=== PATIENT | female | born 1985 | race Caucasian/White ===

== ENCOUNTER 2016-09-13 17:18 | Emergency (ER) | payer MEDICAID ==
--- NOTE | 2016-09-13 17:55 | ER Document Report ---
ED Medical Screen (RME) - General Stated Complaint: MIGRAINE Mode of Arrival: Ambulatory Information source: Patient Notes: Patient complains of headache pain for the past 3 days. Patient states pain has gradually been getting worse. Patient states this is typical migraines that she's had before but she ran out of her migraine medications. hx: Migraines I have greeted and performed a rapid initial assessment of this patient. A comprehensive ED assessment and evaluation of the patient, analysis of test results and completion of the medical decision making process will be conducted by additional ED providers. TRAVEL OUTSIDE OF THE [place] IN LAST 30 DAYS: No - Related Data Allergies/Adverse Reactions: No Known Allergies Allergy (Verified 08/30/15 23:26) Past Medical History Neurological Medical History: Reports: Hx Migraine Past Surgical History: Reports: Hx Myringotomy - Immunizations Immunizations up to date: Yes Hx Diphtheria, Pertussis, Tetanus Vaccination: Yes Physical Exam - Vital signs Vitals: Temp Pulse Resp BP Pulse Ox 97.9 F 117 H 19 122/82 100 09/13/16 17:21 09/13/16 17:21 09/13/16 17:21 09/13/16 17:21 09/13/16 17:21 - Neurological Neuro grossly intact: Yes Cognition: Normal [place] Coma Scale Eye Opening: Spontaneous [place] Coma Scale Verbal: Oriented Randy Coma Scale Motor: Obeys Commands Randy Coma Scale Total: 15 Course - Vital Signs Vital signs: Temp Pulse Resp BP Pulse Ox 97.9 F 117 H 19 122/82 100 09/13/16 17:21 09/13/16 17:21 09/13/16 17:21 09/13/16 17:21 09/13/16 17:21
[2016-09-13] MEDS ORDERED: OXYCODONE-ACETAMINOPHEN 5-325 MG TABLET PO ONE (18:48)
--- NOTE | 2016-09-13 19:28 | ER Document Report ---
ED Headache - General Time seen by provider: 18:35 Mode of Arrival: Ambulatory Information source: Patient TRAVEL OUTSIDE OF THE [place] IN LAST 30 DAYS: No - HPI Patient complains to provider of: "Migraine" Patient reports: Frequent migraines Onset: Other - see HPI notes - General Stated Complaint: MIGRAINE Notes: Patient is a 31 year old female presenting to the emergency department with complaints of a migraine. Patient states she has had a migraine for the past 3 days. Patient states that she has tried all of her at home medications with no relief. Patient has also tried a muscle relaxer which also had no relief. Patient states that she has had an increased amount of stress lately and she has not been sleeping well because she lost her best friend last week. Patient has no known allergies. (MIA HARDY) - Related Data Allergies/Adverse Reactions: No Known Allergies Allergy (Verified 09/13/16 17:54) Past Medical History - General Information source: Patient - Social History Smoking Status: Never Smoker Cigarette use (# per day): No Chew tobacco use (# tins/day): No Frequency of alcohol use: None Drug Abuse: None Family History: Reviewed & Not Pertinent, Arthritis, CAD, DM, Hyperlipidemia, Hypertension, Malignancy, Thyroid Disfunction Patient has suicidal ideation: No Patient has homicidal ideation: No Neurological Medical History: Reports: Hx Migraine Past Surgical History: Reports: Hx Myringotomy - Immunizations Immunizations up to date: Yes Hx Diphtheria, Pertussis, Tetanus Vaccination: Yes Review of Systems - Review of Systems Constitutional: No symptoms reported EENT: No symptoms reported Cardiovascular: No symptoms reported Respiratory: No symptoms reported Gastrointestinal: No symptoms reported Genitourinary: No symptoms reported Female Genitourinary: No symptoms reported Musculoskeletal: No symptoms reported Skin: No symptoms reported Hematologic/Lymphatic: No symptoms reported Neurological/Psychological: See HPI, Headaches -: Yes All other systems reviewed and negative Physical Exam - Vital signs Interpretation: Normal - General General appearance: Alert, Other - appears uncomfortable In distress: Mild - HEENT Head: Normocephalic, Atraumatic Eyes: Normal Pupils: PERRL Mucous membranes: Moist - Respiratory Respiratory status: No respiratory distress Chest status: Nontender Breath sounds: Normal Chest palpation: Normal - Cardiovascular Rhythm: Regular Heart sounds: Normal auscultation Murmur: No - Abdominal Inspection: Normal Distension: No distension Bowel sounds: Normal Tenderness: Nontender Organomegaly: No organomegaly - Back Back: Normal, Nontender - Extremities General upper extremity: Normal inspection, Normal ROM, Normal strength General lower extremity: Normal inspection, Normal ROM, Normal strength - Neurological Neuro grossly intact: Yes Cognition: Normal Orientation: AAOx4 Randy Coma Scale Eye Opening: Spontaneous [place] Coma Scale Verbal: Oriented [place] Coma Scale Motor: Obeys Commands Randy Coma Scale Total: 15 Speech: Normal - Psychological Associated symptoms: Normal affect, Normal mood - Skin Skin Temperature: Warm Skin Moisture: Dry Course - Re-evaluation Re-evalutation: 09/13/16 Patient presents with her typical migraine pattern. Patient has taken her prescribed medications at home for migraines and they have not worked. Patient states that Percocet works when she has severe pain. States that she's not been able to sleep because she is been under a lot of stress. Patient has been medicated with Percocet with good results. Patient is feeling better and would like to go home. Stable for discharge. Return immediately if any worsening or concerning symptoms. (GAYLE RED) - Vital Signs Vital signs: Temp Pulse Resp BP Pulse Ox 97.9 F 117 H 19 122/82 100 09/13/16 17:21 09/13/16 17:21 09/13/16 17:21 09/13/16 17:21 09/13/16 17:21 (MIA HARDY) (GAYLE RED) Discharge - Discharge Clinical Impression: Headache Qualifiers: Headache type: unspecified Headache chronicity pattern: acute headache Intractability: not intractable Qualified Code(s): R51 - Headache Condition: Stable Disposition: HOME, SELF-CARE Instructions: Headache ([facility]), Oral Narcotic Medication ([facility]) Prescriptions: Oxycodone HCl/Acetaminophen [Percocet 5-325 mg Tablet] 1 tab PO Q4H PRN #15 tablet PRN Reason: Forms: Return to School Referrals: ARCELIA JAVED DO [Primary Care Provider] - Follow up as needed Scribe Attestation: 09/13/16 21:12 I personally performed the services described in the documentation, reviewed and edited the documentation which was dictated to the scribe in my presence, and it accurately records my words and actions. (GAYLE RED) Scribe Documentation - Scribe Written by Scribe:: Mia Hardy 09/13/16 19:57 acting as scribe for :: Radha
[2016-09-13] MEDS ORDERED: HYDROCODONE/ACETAMINOPHEN 5-325 MG 6 TAB/DSPK PO PRN (19:37)
[2016-09-13 21:13] VITALS: BP 121/75
== END 2016-09-13 19:40 | disposition home or self-care (01) ==
LOC: ER 17:18
DX: G43.909 Migraine, unspecified, not intractable, without status migrainosus (principal); G47.9 Sleep disorder, unspecified; F43.9 Reaction to severe stress, unspecified
CPT/HCPCS: 99283

== ENCOUNTER → 2017-06-02 | Outpatient (CLI) | payer MEDICAID ==
--- NOTE | 2017-06-02 17:20 | RADIOLOGY REPORT (SQ) ---
EXAM DESCRIPTION: C SP 4 OR 5 VIEWS COMPLETED DATE/TIME: 06/02/2017 4:44 pm REASON FOR STUDY: CERVICALGIA M54.2 CERVICALGIA COMPARISON: None. NUMBER OF VIEWS: Five views. TECHNIQUE: AP, lateral, obliques and odontoid radiographic images acquired of the cervical spine. LIMITATIONS: None. FINDINGS: MINERALIZATION: Normal. ALIGNMENT: Anatomic. VERTEBRAE: Vertebral bodies of normal height. DISCS: No significant osteophytes or sclerosis. Disc height maintained. FORAMINA: No osteophytes or foraminal narrowing. LATERAL AND POSTERIOR ELEMENTS: Facets, lateral masses and spinous processes without significant find ings. HARDWARE: None in the spine. SOFT TISSUES: No masses or calcifications. Lung apices clear. OTHER: No other significant finding. IMPRESSION: NO SIGNIFICANT RADIOGRAPHIC FINDING IN THE CERVICAL SPINE. TECHNICAL DOCUMENTATION: JOB ID: [id number] [employer]- All Rights Reserved
== END ==
LOC: OD 16:03
PROVIDERS: ATTEND Family Medicine
DX: M54.2 Cervicalgia (principal)
CPT/HCPCS: 72050

== ENCOUNTER 2018-06-26 23:16 | Emergency (ER) | payer MEDICAID ==
[2018-06-27] MEDS ORDERED: DIPHENHYDRAMINE HCL 50 MG/ML VIAL IV ONE (00:11)
[2018-06-27] MEDS ORDERED: KETOROLAC TROMETHAMINE INJ/PF 30 MG/1 ML SDV IV ONE (00:11)
[2018-06-27] MEDS ORDERED: METOCLOPRAMIDE HCL INJ/PF 10 MG/2 ML SDV IV ONE (00:11)
--- NOTE | 2018-06-27 00:17 | ER Document Report ---
ED General - General Chief Complaint: Headache Stated Complaint: HEADACHE Time Seen by Provider: 06/26/18 23:57 Mode of Arrival: Ambulatory Information source: Patient, Parent Notes: 32-year-old female presents to the emergency department with debilitating headache, ear infection, and back pain. She states the headache is due to a migraine and is of her typical variety. She says that she takes diclofenac powder to abort it and she took 2 packets today one at 7 a.m. and the second at noon, which did not work. She also took 800 mg of Motrin at around 1700. She rates the pain as 4 out of 5, denies nausea, denies vomiting, denies any vision changes, denies neck stiffness. She also complains of left ear pain that she says is unrelated to her migraine that she suspects is an ear infection. TRAVEL OUTSIDE OF THE [place] IN LAST 30 DAYS: No - HPI Onset: Yesterday Severity: Severe Pain Level: 4 - Related Data Allergies/Adverse Reactions: No Known Allergies Allergy (Verified 09/13/16 17:54) Past Medical History - General Information source: Patient, Parent - Social History Smoking Status: Smoker,Current Status Unk Frequency of alcohol use: None Drug Abuse: None Family History: Reviewed & Not Pertinent, Arthritis, CAD, DM, Hyperlipidemia, Hypertension, Malignancy, Thyroid Disfunction Neurological Medical History: Reports: Hx Migraine Renal/ Medical History: Denies: Hx Peritoneal Dialysis Past Surgical History: Reports: Hx Myringotomy - Immunizations Immunizations up to date: Yes Hx Diphtheria, Pertussis, Tetanus Vaccination: Yes Review of Systems - Review of Systems Constitutional: See HPI EENT: See HPI Cardiovascular: See HPI Respiratory: See HPI Gastrointestinal: See HPI Genitourinary: No symptoms reported Female Genitourinary: No symptoms reported Musculoskeletal: No symptoms reported Skin: No symptoms reported Hematologic/Lymphatic: No symptoms reported Neurological/Psychological: No symptoms reported Physical Exam - Vital signs Vitals: Temp Pulse Resp BP Pulse Ox 98.6 F 82 14 142/75 H 99 06/26/18 23:33 06/26/18 23:33 06/26/18 23:33 06/26/18 23:33 06/26/18 23:33 Course - Re-evaluation Re-evalutation: 06/27/18 00:16 Patient is a 32-year-old female with history of migraines who presents to the emergency department appearing in moderate distress. She says she has attempted to take diclofenac x2 and Motrin and her headache is not aborted. She states in the past these modalities have worked. She has been seen in this emergency department 2 other times and was given both Percocet and Dilaudid w good results. Allotted 0.5 mg will be given once 06/27/18 01:29 Patient responded to Dilaudid 0.5 mg. She says her headache is no longer "excruciating", was 4 out of 5 is now a 3 out of 5. Will give Dilaudid 0.5 mg 1 more time then perform physical exam. 06/27/18 02:00 Second dose of Dilaudid 0.5 mg x1 given. Patient reports great improvement and she was sitting up in the bed with her eyes open looking around the room in no acute distress. I told her it was important to follow-up with neurologist on Friday. She requested some type of pain medication in case she has another episode over the weekend until Friday. I think it is reasonable to give her a [employer] rapid dispense pack as she shows no pattern of medication misuse or frequent requests when performing a check on [employer] aware. - Vital Signs Vital signs: Temp Pulse Resp BP Pulse Ox 98.6 F 82 14 142/75 H 99 06/26/18 23:33 06/26/18 23:33 06/26/18 23:33 06/26/18 23:33 06/26/18 23:33 Discharge - Discharge Clinical Impression: Migraine Qualifiers: Migraine type: without aura Status migrainosus presence: without status migrainosus Intractability: intractable Qualified Code(s): G43.019 - Migraine without aura, intractable, without status migrainosus Otitis media Qualifiers: Otitis media type: other nonsuppurative Chronicity: acute Laterality: left Recurrence: non-recurrent Qualified Code(s): H65.192 - Other acute nonsuppurative otitis media, left ear Condition: Stable Disposition: HOME, SELF-CARE Instructions: Migraine Headache ([facility]), Otitis Media ([facility]) Additional Instructions: You were seen in the emergency department this evening for migraine headache. Please follow-up with a neurologist on Friday morning to reassess your medication regimen. If you develop sudden onset severe "thunderclap" headache, you pass out, he had vision loss, or if any severe symptoms not typical of your migraines please return to the emergency department. Prescriptions: Amoxicillin Trihydrate [Amoxil 875 mg Tablet] 1 tab PO BID #20 tablet Referrals: ARCELIA JAVED DO [Primary Care Provider] - Follow up as needed
[2018-06-27] MEDS ORDERED: OXYCODONE-ACETAMINOPHEN 5-325 MG TABLET PO ONE (00:32)
[2018-06-27] MEDS ORDERED: HYDROMORPHONE HCL INJ/PF 2 MG/ML AMPULE IV ONE ×2 (00:36→01:06)
[2018-06-27] MEDS ORDERED: AMOXICILLIN TRIHYDRATE 500 MG CAPSULE PO ONE (01:57)
[2018-06-27] MEDS ORDERED: HYDROCODONE/ACETAMINOPHEN 5-325 MG (6 TAB/ER DISP) PO PRN (01:58)
[2018-06-27 02:16] VITALS: BP 122/71
== END 2018-06-27 02:23 | disposition home or self-care (01) ==
LOC: ER 23:16
DX: G43.019 Migraine without aura, intractable, without status migrainosus (principal); H65.192 Other acute nonsuppurative otitis media, left ear; M54.9 Dorsalgia, unspecified; F17.200 Nicotine dependence, unspecified, uncomplicated
CPT/HCPCS: 96376; 99284; 96374; 96375; J1885; J1170; J1200; J2765

== ENCOUNTER 2019-01-25 02:48 | Emergency (ER) | payer MEDICAID ==
[2019-01-25 03:23] VITALS: BP 105/63
[2019-01-25] MEDS ORDERED: KETOROLAC TROMETHAMINE 60 MG/2 ML SDV IM ONE (07:03)
--- NOTE | 2019-01-25 07:41 | RADIOLOGY REPORT (SQ) ---
EXAM DESCRIPTION: XR ELBOW 1-2 VIEWS COMPLETED DATE/TME: 01/25/2019 07:03 CLINICAL HISTORY: 33 years, Female, pain COMPARISON: None. NUMBER OF VIEWS: Two TECHNIQUE: AP and lateral views of the right elbow LIMITATIONS: None. FINDINGS: There is no acute fracture or dislocation. There is no joint effusion. No large soft tissue swelling. No radiopaque foreign body. IMPRESSION: No acute fracture or dislocation. copyright 2010 [employer]- All Rights Reserved
--- NOTE | 2019-01-25 07:58 | ER Document Report ---
ED General - General Chief Complaint: Arm Pain Stated Complaint: MIGRAINES,RIGHT ARM PAIN Time Seen by Provider: 01/25/19 06:26 Primary Care Provider: ARCELIA JAVED DO [Primary Care Provider] - Follow up as needed TRAVEL OUTSIDE OF THE [place] IN LAST 30 DAYS: No - HPI Notes: Patient is a 33-year-old female who presents to the emergency department for evaluation of 2 separate complaints. First she has migraine. It is typical of her normal migraines. It is left-sided, behind her left eye, occasionally into her left neck. She denies any fevers or chills. Pain is worsened by bright light and loud noises. She is had some nausea earlier, but she states that it entirely resolved. No head injuries. No difficulty seeing, speaking, swallowing. Moving arms and legs without difficulty. She is to be on Topamax for prophylaxis, but she states that she had to come off of it for a while because it was "making her crazy." Patient also states she is had intermittent elbow pain for the last few weeks. She describes it as an ache. Is worsened by movement. She states occasionally she feels as if she is having some difficulty gripping things with her right hand. She denies any numbness or tingling. No lianna injury. No fevers. She states sometimes it feels warm. - Related Data Allergies/Adverse Reactions: No Known Allergies Allergy (Verified 09/13/16 17:54) Past Medical History - General Information source: Patient - Social History Smoking Status: Former Smoker Family History: Reviewed & Not Pertinent, Arthritis, CAD, DM, Hyperlipidemia, Hypertension, Malignancy, Thyroid Disfunction Neurological Medical History: Reports: Hx Migraine Renal/ Medical History: Denies: Hx Peritoneal Dialysis Past Surgical History: Reports: Hx Myringotomy - Immunizations Immunizations up to date: Yes Hx Diphtheria, Pertussis, Tetanus Vaccination: Yes Review of Systems - Review of Systems Constitutional: No symptoms reported EENT: No symptoms reported Cardiovascular: No symptoms reported Respiratory: No symptoms reported Gastrointestinal: See HPI Genitourinary: No symptoms reported Female Genitourinary: No symptoms reported Musculoskeletal: See HPI Skin: No symptoms reported Neurological/Psychological: See HPI Physical Exam - Vital signs Vitals: Temp Pulse Resp BP Pulse Ox 98.2 F 82 20 105/63 94 01/25/19 03:05 01/25/19 03:05 01/25/19 03:05 01/25/19 03:05 01/25/19 03:05 - Notes Notes: Vital signs reviewed, please refer to chart. Head is normocephalic, atraumatic. Pupils equal round, reactive to light. Neck is supple without meningismus. Heart is regular rate and rhythm. Lungs are clear to auscultation bilaterally. Abdomen is soft, nontender, normoactive bowel sounds throughout. Extremities without cyanosis, clubbing. Posterior calves are nontender. Peripheral pulses are equal. Skin is warm and dry. Patient is awake, alert, oriented x3. Cranial nerves II - XII are grossly intact without focal neurological deficits. Strength is plus 5 out of 5 bilateral lower extremities. Sensation is intact. Reflexes symmetrical. Intact [id number], rapid alternating movements, [id number]. Examination of the right elbow reveals no obvious deformity. No erythema or calor is noted. Patient is tender to palpation over the olecranon. Radial pulse 2+. Capillary refill is brisk. Course - Re-evaluation Re-evalutation: 01/25/19 08:44 Patient presents emergency department for evaluation of the above-mentioned complaints. She is no longer nauseated. Her vitals are within normal limits. This is a migraine that is typical of her normal headaches. She was given a shot of IM Toradol. This was also administered in the hopes of helping her with her elbow pain. Her elbow x-ray was ordered, fails to reveal any significant abnormality. We will go ahead and have her follow-up with primary care. She may require referral on to Ortho. She is to return to the ED with worsening or new concerning symptoms of any sort. 01/25/19 09:33 Notified by nursing that patient "would not leave." She stated that Naprosyn does not help, she did not get much relief from the Toradol. She told nursing that the medicine she had received in the past have been helpful. I reviewed her chart. She has received Dilaudid and Percocet. I explained to the patient that I did not believe that was appropriate medications for migraine headache. I would be happy to treat her with alternative regimens. Patient was ordered subcutaneous sumatriptan hand as well as oral Tylenol. We will continue to follow. - Vital Signs Vital signs: Temp Pulse Resp BP Pulse Ox 98.2 F 82 20 105/63 94 01/25/19 03:05 01/25/19 03:05 01/25/19 03:05 01/25/19 03:05 01/25/19 03:05 Discharge - Discharge Clinical Impression: Migraine headache, Right elbow pain Condition: Stable Disposition: HOME, SELF-CARE Instructions: Migraine Headache ([facility]) Additional Instructions: No clear cause was found for your elbow pain today. Take anti-inflammatory prescription as prescribed, with food. Follow-up with your primary care physician. Rest. Return to the ED with worsening or new concerning symptoms of any sort. Prescriptions: Butalb/Acetaminophen/Caffeine [Fioricet (50-325-40 mg) Tablet] 1 tab PO Q4HP PRN #10 tab PRN Reason: Naproxen [Naprosyn 375 Mg Tablet] 375 mg PO BID #20 tablet Naproxen [Naprosyn 375 Mg Tablet] 375 mg PO BID #20 tablet Referrals: ARCELIA JAVED DO [Primary Care Provider] - Follow up as needed
[2019-01-25] MEDS ORDERED: ACETAMINOPHEN 325 MG TABLET PO ONE (09:33)
[2019-01-25] MEDS ORDERED: SUMATRIPTAN SUCCINATE INJ/PF 6 MG/0.5 ML SDV SUBCUT ONE (09:33)
== END 2019-01-25 09:45 | disposition home or self-care (01) ==
LOC: ER 02:48
DX: G43.909 Migraine, unspecified, not intractable, without status migrainosus (principal); M25.521 Pain in right elbow; Z87.891 Personal history of nicotine dependence
CPT/HCPCS: 99283; 96372; 96374; 73070; J3490; J1885; J3030

== ENCOUNTER 2019-06-10 23:37 | Emergency (ER) | payer MEDICAID ==
[2019-06-11] MEDS ORDERED: HYDROMORPHONE HCL INJ/PF 2 MG/ML AMPULE IV ONE ×2 (03:52→05:32)
[2019-06-11] MEDS ORDERED: ONDANSETRON HCL INJ/PF 4 MG/2 ML SDV IV ONE (03:52)
[2019-06-11 04:23] LABS: ABSOLUTE LYMPHOCYTES (AUTO) 2.1 10^3/uL (0.5-4.7); ABSOLUTE MONOCYTES (AUTO) 0.4 10^3/uL (0.1-1.4); ABSOLUTE NEUT (AUTO) 5.7 10^3/uL (1.7-8.2); BASOPHILS % (AUTO) 0.3 % (0-2); EOSINOPHILS % (AUTO) 0.5 % (0-6); HEMATOCRIT 42.2 % (36.0-47.0); HEMOGLOBIN 14.6 g/dL (12.0-15.5); LYMPHOCYTES % (AUTO) 25.4 % (13-45); MEAN CORPUSCULAR HGB CONC 34.5 g/dL (32.0-36.0); MEAN CORPUSCULAR VOLUME 87 fl (80-97); MONOCYTES % (AUTO) 5.3 % (3-13); PLATELET COUNT 244 10^3/uL (150-450); RED BLOOD COUNT 4.86 10^6/uL (3.72-5.28); RED CELL DISTRIBUTION WIDTH 12.7 % (11.5-14.0); SEGMENTED NEUTROPHILS % (AUTO) 68.5 % (42-78); TOTAL CELLS COUNTED % (AUTO) 100 %; WHITE BLOOD COUNT 8.4 10^3/uL (4.0-10.5)
[2019-06-11 04:35] LABS: APPEARANCE,URINE CLOUDY; BILIRUBIN,URINE NEGATIVE (NEGATIVE); COLOR,URINE YELLOW; GLUCOSE, URINE NEGATIVE (NEGATIVE); KETONES,URINE NEGATIVE (NEGATIVE); LEUKOCYTE ESTERASE,URINE NEGATIVE (NEGATIVE); NITRITE,URINE NEGATIVE (NEGATIVE); PROTEIN,URINE NEGATIVE (NEGATIVE); URINE SPECIFIC GRAVITY 1.014; UROBILINOGEN,URINE NEGATIVE mg/dL (<2.0)
[2019-06-11 04:44] LABS: ALBUMIN 4.7 g/dL (3.5-5.0); ALKALINE PHOSPHATASE 52 U/L (38-126); ANION GAP 10 (5-19); ASPARTATE AMINO TRANSFERASE 19 U/L (14-36); BLOOD UREA NITROGEN 9 mg/dL (7-20); CARBON DIOXIDE 28 mmol/L (22-30); CHLORIDE 104 mmol/L (98-107); GLUCOSE 114 mg/dL (75-110); POTASSIUM 3.7 mmol/L (3.6-5.0); TOTAL PROTEIN 8.1 g/dL (6.3-8.2)
[2019-06-11 04:53] LABS: URINE AMPHETAMINES SCREEN NEGATIVE; URINE BARBITURATES SCREEN NEGATIVE; URINE BENZODIAZEPINES SCREEN NEGATIVE; URINE COCAINE SCREEN NEGATIVE; URINE MARIJUANA (THC) SCREEN NEGATIVE; URINE METHADONE SCREEN NEGATIVE; URINE PHENCYCLIDINE SCREEN NEGATIVE
--- NOTE | 2019-06-11 05:02 | ER Document Report ---
Entered by KAYLA KAUR SCRIBE 06/11/19 0350 Acting as scribe for:LAURA BYRNE IV, MD ED Neck/Back Problem - General Chief Complaint: Back Pain Stated Complaint: BACK PAIN Time Seen by Provider: 06/11/19 03:26 Primary Care Provider: ARCELIA JAVED DO [Primary Care Provider] - Follow up as needed Mode of Arrival: Ambulatory Information source: Patient Notes: This 33 year old female patient presents to the emergency department today with complaints of back pain for the last few days. Patient states that she fell off a horse a few days ago but didn't develop pain until several days later. Patient denies any urinary symptoms. TRAVEL OUTSIDE OF THE [place] IN LAST 30 DAYS: No - Related Data Allergies/Adverse Reactions: No Known Allergies Allergy (Verified 09/13/16 17:54) Past Medical History - General Information source: Patient - Social History Smoking Status: Never Smoker Cigarette use (# per day): No Frequency of alcohol use: None Drug Abuse: None Lives with: Family Family History: Reviewed & Not Pertinent, Arthritis, CAD, DM, Hyperlipidemia, Hypertension, Malignancy, Thyroid Disfunction Patient has suicidal ideation: No Patient has homicidal ideation: No Neurological Medical History: Reports: Hx Migraine Past Surgical History: Reports: Hx Myringotomy - Immunizations Immunizations up to date: Yes Hx Diphtheria, Pertussis, Tetanus Vaccination: Yes Review of Systems - Review of Systems Constitutional: No symptoms reported EENT: No symptoms reported Cardiovascular: No symptoms reported Respiratory: No symptoms reported Gastrointestinal: No symptoms reported Genitourinary: denies: Dysuria Female Genitourinary: No symptoms reported Musculoskeletal: See HPI, Back pain Skin: No symptoms reported Hematologic/Lymphatic: No symptoms reported Neurological/Psychological: No symptoms reported -: Yes All other systems reviewed and negative Physical Exam - Vital signs Vitals: Temp Pulse Resp BP Pulse Ox 98.0 F 93 16 126/91 H 99 06/10/19 23:45 06/10/19 23:45 06/10/19 23:45 06/10/19 23:45 06/10/19 23:45 - Notes Notes: Physical Exam: General: Sleeping, easily arousable. HEENT: Normocephalic. Atraumatic. PERRL. Extraocular movements intact. Oropharynx clear. Neck: Supple. Non-tender. Respiratory: No respiratory distress. Clear and equal breath sounds bilaterally. Cardiovascular: Regular rate and rhythm. Abdominal: Normal Inspection. Non-tender. No distension. Normal Bowel Sounds. Back: Positive straight leg raise bilaterally. No step offs or deformities. Mi dline tenderness with palpation at the level of L2. No gross abnormalities. Extremities: Moves all four extremities. Upper extremities: Normal inspection. Normal ROM. Lower extremities: Normal inspection. No edema. Normal ROM. Neurological: Normal cognition. AAOx4. Normal speech. Psychological: Odd affect. Skin: Warm. Dry. Normal color. Course - Re-evaluation Re-evalutation: 06/11/19 05:33 Patient states that pain medication helped and that she is feeling somewhat better but the pain is starting to come back. Results of lumbar films, labs and urinalysis discussed with patient diagnosis of acute back pain with sciatica discussed with patient all questions were answered prior to discharge patient stated understanding of diagnosis as explained to her as well as precautions and reasons to return to the emergency department. - Vital Signs Vital signs: Temp Pulse Resp BP Pulse Ox 98.0 F 93 16 126/91 H 99 06/10/19 23:45 06/10/19 23:45 06/10/19 23:45 06/10/19 23:45 06/10/19 23:45 06/11/19 05:35 Vital signs reviewed by this MD. - Laboratory Result Diagrams: 06/11/19 04:03 06/11/19 04:03 Laboratory results interpreted by me: 06/11/19 04:03 Glucose 114 H All lab results reviewed by this MD. - Diagnostic Test Radiology reviewed: Reports reviewed Discharge - Discharge Clinical Impression: Acute back pain with sciatica Qualifiers: Laterality: unspecified laterality Qualified Code(s): M54.40 - Lumbago with sciatica, unspecified side Condition: Good Disposition: HOME, SELF-CARE Instructions: Low Back Pain ([facility]), Oral Narcotic Medication ([facility]) Additional Instructions: Sciatica Your symptoms suggest "sciatica." The pain of sciatica typically radiates down the leg. Numbness in the foot or calf may also occur. Sciatica is caused by irritation of the sciatic nerve or its branches. The irritation can be due to a herniated disk in the spine, swelling and inflammation in the muscles surround ing the sciatic nerve, or direct injury of the nerve itself. Most cases of sciatica will resolve with medical treatment. Bed rest is usually recommended initially. Surgery is only necessary when the condition will not improve with rest and antiinflammatory medication. Muscle relaxers are often given if muscle soreness is present. A CAT scan of the back may be performed if a herniated disk is suspected. Re-examination is necessary if you develop increasing numbness, localized weakness in the foot or ankle, or if the pain does not respond to rest. Return to the Emergency Department without delay if any worse. HOME CARE INSTRUCTIONS & INFORMATION: Thank you for choosing us for your medical needs. We hope you're satisfied with the care you received. After you leave, you must properly care for your problem and, at the same time, observe its progress. Any condition can change. Some illnesses can change rapidly over hours or days. If your condition worsens, return to the Emergency Department or see your physician promptly. ABOUT YOUR X-RAYS AND EKG'S: If you had an EKG or X-rays taken, they have been read by the Emergency Physician. The X-rays and EKG's will also be read by a Radiologist or Cycle Counter within 24 hours. If discrepancies are noted, you will be notified by telephone. Please be certain the ED has a correct telephone number & address where you can be reached. Also, realize that some fractures or abnormalities do not show up on initial X-rays. If your symptoms continue, see your physician. ABOUT YOUR LABORATORY TEST: If you had laboratory tests, the results have been reviewed by the Emergency Physician. Some test results (for example cultures) may not be available for several days. You will be contacted if any test result shows you need additional treatment. Please be certain the ED has a correct telephone number and address where you can be reached. ABOUT YOUR MEDICATIONS: You will receive instructions on how to take your medicine on the prescription label you receive. Additional information may be provided by the Pharmacy. If you have questions afterwards, call the ED for clarification or further instructions. Some prescribed medications may cause drowsiness. Do not perform tasks such as driving a car or operating machinery without consulting your Pharmacist. If you feel you need a refill of pain medication, your condition will need re-evaluation. Please do not call for a refill of any medication. ABOUT YOUR SIGNATURE: Signature of this document acknowledges to followin. Understanding that you received emergency treatment and that you may be released before al medical problems are known or treated. Please be certain the ED has a correct phone number & address where you can be reached. 2. Acknowledgement that you will arrange for follow-up care as recommended. 3. Authorization for the Emergency Physician to provide information to your follow-up Physician in order to maximize your care. AT ANY TIME, IF YOUR SYMPTOMS CHANGE SIGNIFICANTLY OR WORSEN OR YOU DEVELOP NEW SYMPTOMS, RETURN TO THE EMERGENCY DEPARTMENT IMMEDIATELY FOR RE-EVALUATION. OUR GOAL IS TO PROVIDE EXCELLENT MEDICAL CARE! WE HOPE THAT WE HAVE MET YOUR EXPECTATIONS DURING YOUR EMERGENCY DEPARTMENT VISIT AND THAT YOU FEEL YOU HAVE RECEIVED EXCELLENT CARE! Prescriptions: Prednisone [Deltasone 20 mg Tablet] 60 mg PO DAILY #12 tablet Hydrocodone/Acetaminophen [Vicodin 5-300 mg Tablet] 1 each PO Q6H PRN 3 Days #15 tablet PRN Reason: severe pain Referrals: ARCELIA JAVED DO [Primary Care Provider] - 06/14/19 I personally performed the services described in the documentation, reviewed and edited the documentation which was dictated to the scribe in my presence, and it accurately records my words and actions.
--- NOTE | 2019-06-11 05:08 | RADIOLOGY REPORT (SQ) ---
Lumbar spine five view on 06/11/2019 at 4:33 AM CLINICAL INDICATION: Fell off horse four days ago, low back pain COMPARISON: None FINDINGS: Mild increased stool is noted throughout the colon suggesting constipation. The lumbar spine is well aligned. Disc space height is well-maintained. There are no fractures. No bony abnormality is noted. IMPRESSION: 1. No acute bony abnormality. 2. Increased stool throughout the colon suggesting constipation.
[2019-06-11] MEDS ORDERED: METHYLPREDNISOLONE INJ 125 MG/2 ML SDV IV ONE (05:32)
[2019-06-11 06:01] VITALS: BP 110/76
== END 2019-06-11 06:02 | disposition home or self-care (01) ==
LOC: ER 23:37
DX: M54.40 Lumbago with sciatica, unspecified side (principal); V80.010A Animal-rider injured by fall from or being thrown from horse in noncollision accident, initial encounter
CPT/HCPCS: 96376; 99283; 96374; 96375; 36415; 85025; 81025; 80053; 81001; 80307; 72110; J2930; J1170; J2405

== ENCOUNTER → 2020-01-15 | Outpatient (CLI) | payer MEDICAID ==
[2020-01-15 11:37] LABS: ABSOLUTE EOSINOPHILS # (AUTO) 0.1 10^3/uL (0.0-0.6); ABSOLUTE LYMPHOCYTES (AUTO) 1.2 10^3/uL (0.5-4.7); ABSOLUTE MONOCYTES (AUTO) 0.2 10^3/uL (0.1-1.4); ABSOLUTE NEUT (AUTO) 3.3 10^3/uL (1.7-8.2); BASOPHILS % (AUTO) 0.4 % (0-2); EOSINOPHILS % (AUTO) 2.7 % (0-6); HEMATOCRIT 42.8 % (36.0-47.0); HEMOGLOBIN 14.8 g/dL (12.0-15.5); LYMPHOCYTES % (AUTO) 25.3 % (13-45); MEAN CORPUSCULAR HEMOGLOBIN 29.8 pg (27.0-33.4); MEAN CORPUSCULAR HGB CONC 34.6 g/dL (32.0-36.0); MEAN CORPUSCULAR VOLUME 86 fl (80-97); MONOCYTES % (AUTO) 4.2 % (3-13); PLATELET COUNT 226 10^3/uL (150-450); RED BLOOD COUNT 4.96 10^6/uL (3.72-5.28); RED CELL DISTRIBUTION WIDTH 12.9 % (11.5-14.0); SEGMENTED NEUTROPHILS % (AUTO) 67.4 % (42-78); TOTAL CELLS COUNTED % (AUTO) 100 %; WHITE BLOOD COUNT 4.9 10^3/uL (4.0-10.5)
[2020-01-15 11:57] LABS: ALBUMIN 4.8 g/dL (3.5-5.0); ALKALINE PHOSPHATASE 58 U/L (38-126); ANION GAP 9 (5-19); ASPARTATE AMINO TRANSFERASE 16 U/L (14-36); BLOOD UREA NITROGEN 10 mg/dL (7-20); CARBON DIOXIDE 29 mmol/L (22-30); CHLORIDE 102 mmol/L (98-107); CHOLESTEROL 187.62 mg/dL (0-200); GLUCOSE 104 mg/dL (75-110); POTASSIUM 5.2 mmol/L (3.6-5.0); TOTAL PROTEIN 7.7 g/dL (6.3-8.2); TRIGLYCERIDES 115 mg/dL (<150)
[2020-01-15 12:08] LABS: DIRECT LDL 130 mg/dL (<100)
[2020-01-15 12:15] LABS: FREE T3 2.75 pg/mL (2.77-5.27); FREE T4 (FREE THYROXINE) 0.98 ng/dL (0.78-2.19)
[2020-01-15 12:29] LABS: THYROID STIMULATING HORMONE 1.26 uIU/mL (0.47-4.68)
[2020-01-17 16:20] LABS: THYROGLOBULIN AB 8.4 IU/mL (0.0-0.9)
== END ==
LOC: OD 10:40
PROVIDERS: ATTEND Family Medicine
DX: N91.2 Amenorrhea, unspecified (principal); R59.1 Generalized enlarged lymph nodes; Z80.8 Family history of malignant neoplasm of other organs or systems
CPT/HCPCS: 36415; 80053; 80061; 82670; 83001; 83002; 84146; 84270; 84402; 84403; 84439; 84443; 84481; 84702; 85025; 86800

== ENCOUNTER 2020-02-11 22:31 | Emergency (ER) | payer MEDICAID ==
[2020-02-11] MEDS ORDERED: ONDANSETRON 4 MG TAB.RAPDIS PO ONE (22:50)
--- NOTE | 2020-02-11 22:57 | ER Document Report ---
ED Medical Screen (RME) - General Chief Complaint: Head Injury Stated Complaint: HEAD INJURY Time Seen by Provider: 02/11/20 22:44 Primary Care Provider: ARCELIA JAVED DO [Primary Care Provider] - Follow up as needed Mode of Arrival: Wheelchair Information source: Patient Notes: Patient is a 34-year-old female comes emergency room after sustaining a slip and fall onto hard floor tiling with positive witnessed loss of consciousness. Patient states that it was her son's birthday today and she had made him a cake but he likes cupcakes more so she was getting the cupcakes together with candles on them and she heard them coming so she tried to get back to the kitchen to hide it from him and as she did she slipped in the drool of her dog. She lost contact with the floor and slipping and fell striking the right side of her head against the tile floor. Unknown length of loss of consciousness but only for approximately less than a minute. Patient had blood all over her face when she woke up and she was brought to the emergency room for evaluation. Physical examination: Patient is a well-nourished well-developed 34-year-old female who is in no apparent distress on physical exam. She does appear uncomfortable. Cardiac: Regular rate and rhythm no murmurs. Lungs: Bilateral breath sounds breath sounds increased clear to auscultation. Abdomen no abnormal findings a bowel sounds present all 4 quads. Neuro: As stated patient is awake alert and oriented at this time. Eyes: Examination patient's eyes shows them to be PERRLA however patient displays very mycotic pupils. She has EOMs that are normal. There is no bruising about the eyes or facial features. Ears: Evaluation of patient's source of bleeding appears to be the ear on the right side. There is no head trauma that can be seen as far as bleeding goes into her hairline. Also the blood seems to be within the confines of the auricle. Further inspection shows her to be a small less than 1 cm lack on the cartilage of the ear. Further evaluation to be done after patient can be cleaned up. I have greeted and performed a rapid initial assessment of this patient. A comprehensive ED assessment and evaluation of the patient, analysis of test results and completion of the medical decision making process will be conducted by additional ED providers. Dictation of this chart was performed using voice recognition software; therefore, there may be some unintended grammatical errors. TRAVEL OUTSIDE OF THE [place] IN LAST 30 DAYS: No - Related Data Allergies/Adverse Reactions: No Known Allergies Allergy (Verified 09/13/16 17:54) Past Medical History Neurological Medical History: Reports: Hx Migraine Renal/ Medical History: Denies: Hx Peritoneal Dialysis Past Surgical History: Reports: Hx Myringotomy - Immunizations Immunizations up to date: Yes Hx Diphtheria, Pertussis, Tetanus Vaccination: Yes Physical Exam - Vital signs Vitals: Temp Pulse Resp BP Pulse Ox 98.5 F 88 14 126/84 H 99 02/11/20 22:37 02/11/20 22:37 02/11/20 22:37 02/11/20 22:37 02/11/20 22:37 Course - Vital Signs Vital signs: Temp Pulse Resp BP Pulse Ox 98.5 F 88 14 126/84 H 99 02/11/20 22:37 02/11/20 22:37 02/11/20 22:37 02/11/20 22:37 02/11/20 22:37 Doctor's Discharge - Discharge Referrals: ARCELIA JAVED DO [Primary Care Provider] - Follow up as needed
--- NOTE | 2020-02-11 23:35 | RADIOLOGY REPORT (SQ) ---
EXAM DESCRIPTION: CT HEAD WITHOUT IV CONTRAST COMPLETED DATE/TME: 02/11/2020 22:50 CLINICAL HISTORY: head trauma pos LOC COMPARISON: None available TECHNIQUE: Axial CT of the head obtained from the skull apex to the skull base without contrast. FINDINGS: No acute intracranial hemorrhage identified. No mass, mass effect, shift of the midline, abnormal extra-axial fluid collection or CT evidence of acute ischemic change identified. The ventricular system is unremarkable. No acute abnormalities of the supratentorial white matter, basal ganglia, cerebellum, or brainstem. The visualized paranasal sinuses and the mastoids are relatively well aerated. Postoperative change of the right mastoid. No skull fracture identified. Visualized orbits and globes are unremarkable. IMPRESSION: 1. No acute intracranial abnormality identified. This exam was performed according to our departmental dose-optimization program, which includes automated exposure control, adjustment of the mA and/or kV according to patient size and/or use of iterative reconstruction technique.
--- NOTE | 2020-02-11 23:37 | RADIOLOGY REPORT (SQ) ---
EXAM DESCRIPTION: CT CERVICAL SPINE WITHOUT IV CONTRAST COMPLETED DATE/TME: 02/11/2020 22:51 CLINICAL HISTORY: fall head strike COMPARISON: None available TECHNIQUE: Axial CT of the cervical spine obtained without contrast. FINDINGS: Straightening of the cervical lordosis may be secondary to patient positioning. The atlantoaxial, atlantodental, and occipitoatlantal intervals are preserved. No fracture identified. Vertebral body height preserved. Prevertebral soft tissues are unremarkable. Intervertebral disc height preserved. Visualized skull base is intact. No fracture of the visualized facial bones. Visualized mastoid air cells and paranasal sinuses are well aerated. Visualized thyroid is unremarkable. No cervical lymphadenopathy. No pneumothorax in the visualized lung apices. IMPRESSION: 1. No acute fracture or subluxation of the cervical spine. This exam was performed according to our departmental dose-optimization program, which includes automated exposure control, adjustment of the mA and/or kV according to patient size and/or use of iterative reconstruction technique.
[2020-02-12] MEDS ORDERED: OXYCODONE-ACETAMINOPHEN 5-325 MG TABLET PO ONE ×2 (00:35→01:53)
[2020-02-12] MEDS ORDERED: LIDOCAINE 2% INJ (20 MG/ML) 20 ML MDV INJ ONE (00:35)
[2020-02-12] MEDS ORDERED: BUPIVACAINE HCL 0.5 % INJ/PF 30 ML SDV INJ ONE (01:34)
[2020-02-12] MEDS ORDERED: IBUPROFEN 600 MG TABLET PO ONE (01:54)
[2020-02-12] MEDS ORDERED: HYDROCODONE/ACETAMINOPHEN 5-325 MG (6 TAB/ER DISP) PO PRN (02:41)
--- NOTE | 2020-02-12 02:47 | ER Document Report ---
Entered by VENITA ARTHUR SCRIBE 02/12/20 0038 Acting as scribe for:LAURA BYRNE IV, MD ED Head/Face/Scalp Injury - General Chief Complaint: Head Injury with LOC Stated Complaint: HEAD INJURY Time Seen by Provider: 02/11/20 22:44 Primary Care Provider: ARCELIA JAVED DO [Primary Care Provider] - Follow up as needed Mode of Arrival: Wheelchair Information source: Patient Notes: This 34 year old female patient presents to the ED today via POV with complaints of a head injury with LOC of approximately less than x1 minute after a fall that occurred just prior to arrival. Patient states that she was decorating a cake for her son's birthday and heard him coming into the kitchen, so she went to run to grab the registered dental assistant to light the candles when she slipped in her dog's drool and fell, striking the right side of her head. She reports a pounding headache with associated nausea. She mentions that she takes Gabapentin and Percocet for chronic hip pain. TRAVEL OUTSIDE OF THE [place] IN LAST 30 DAYS: No - Related Data Allergies/Adverse Reactions: No Known Allergies Allergy (Verified 09/13/16 17:54) Home Medications: ambien, gabapentin Past Medical History - General Information source: Patient - Social History Smoking Status: Never Smoker Cigarette use (# per day): No Chew tobacco use (# tins/day): No Smoking Education Provided: No Lives with: Family Family History: Reviewed & Not Pertinent, Arthritis, CAD, DM, Hyperlipidemia, Hypertension, Malignancy, Thyroid Disfunction Patient has suicidal ideation: No Patient has homicidal ideation: No Neurological Medical History: Reports: Hx Migraine Past Surgical History: Reports: Hx Myringotomy - Immunizations Immunizations up to date: Yes Hx Diphtheria, Pertussis, Tetanus Vaccination: Yes Review of Systems - Review of Systems Constitutional: No symptoms reported EENT: No symptoms reported Cardiovascular: No symptoms reported Respiratory: No symptoms reported Gastrointestinal: See HPI, Nausea Genitourinary: No symptoms reported Female Genitourinary: No symptoms reported Musculoskeletal: No symptoms reported Skin: No symptoms reported Hematologic/Lymphatic: No symptoms reported Neurological/Psychological: See HPI, Lost consciousness, Headaches -: Yes All other systems reviewed and negative Physical Exam - Vital signs Vitals: Temp Pulse Resp BP Pulse Ox 98.5 F 88 14 126/84 H 99 07/24/20 22:37 02/11/20 22:37 02/11/20 22:37 02/11/20 22:37 02/11/20 22:37 - General General appearance: Alert In distress: None - HEENT Head: Normocephalic Eyes: Normal Pupils: PERRL Ears: Other - 2.5 cm laceration noted to the right external ear that involves the edge of the helix and terminates at the crura of the antihelix - Respiratory Respiratory status: No respiratory distress Chest status: Nontender Breath sounds: Normal Chest palpation: Normal - Cardiovascular Rhythm: Regular Heart sounds: Normal auscultation Murmur: No Friction rub: No Gallop: None auscultated - Abdominal Inspection: Normal Distension: No distension Bowel sounds: Normal Tenderness: Nontender - Abdomen soft Organomegaly: No organomegaly - Back Back: Normal, Nontender - Extremities General upper extremity: Normal inspection General lower extremity: Normal inspection - Neurological Neuro grossly intact: Yes Orientation: AAOx4 Randy Coma Scale Eye Opening: Spontaneous Randy Coma Scale Verbal: Oriented Randy Coma Scale Motor: Obeys Commands [place] Coma Scale Total: 15 - Psychological Associated symptoms: Normal affect, Normal mood - Skin Skin Temperature: Warm Skin Moisture: Dry Skin Color: Normal Course - Re-evaluation Re-evalutation: 02/12/20 02:41 Results of ED MSE discussed with patient. Patient instructed to follow-up with her PCP or return to the ED in 10 days for suture removal. All questions were answered prior to discharge. Emergency signs and symptoms, reasons to return to the emergency department sooner discussed with patient. - Vital Signs Vital signs: Temp Pulse Resp BP Pulse Ox 98.5 F 88 14 126/84 H 99 02/11/20 22:37 02/11/20 22:37 02/11/20 22:37 02/11/20 22:37 02/11/20 22:37 - Diagnostic Test Radiology reviewed: Reports reviewed Procedures - Laceration/Wound Repair Right Face Time completed: 02:42 - right ear Wound length (cm): 2.5 - superficial, does not appear to involve cartilage Wound's Depth, Shape: Superficial Laceration pre-procedure: Sterile PPE donned, Shur-Clens applied Anesthetic type: 0.5% Bupivacaine Volume Anesthetic (mLs): 4 Wound explored: Clean Irrigated w/ Saline (mLs): 20 Wound Repaired With: Sutures Suture Size/Type: 5:0, Prolene Number of Sutures: 9 Layer Closure?: No Post-procedure NV exam normal: Yes Complications: No Discharge - Discharge Clinical Impression: Fall, accidental Qualifiers: Encounter type: initial encounter Qualified Code(s): W19.XXXA - Unspecified fall, initial encounter Laceration of right ear Qualifiers: Encounter type: initial encounter Qualified Code(s): S01.311A - Laceration without foreign body of right ear, initial encounter Concussion Qualifiers: Encounter type: initial encounter Loss of consciousness presence/duration: with LOC of 30 min or less Qualified Code(s): S06.0X1A - Concussion with loss of consciousness of 30 minutes or less, initial encounter Condition: Stable Disposition: HOME, SELF-CARE Instructions: Antibiotic Ointment Protection ([facility]), Laceration Care ([facility]) Additional Instructions: Return to the emergency department in 10 days or follow-up with your primary care provider in 10 days for suture removal. Return to the Emergency Department without delay if any worse. HOME CARE INSTRUCTIONS & INFORMATION: Thank you for choosing us for your medical needs. We hope you're satisfied with the care you received. After you leave, you must properly care for your problem and, at the same time, observe its progress. Any condition can change. Some illnesses can change rapidly over hours or days. If your condition worsens, return to the Emergency Department or see your physician promptly. ABOUT YOUR X-RAYS AND EKG'S: If you had an EKG or X-rays taken, they have been read by the Emergency Physician. The X-rays and EKG's will also be read by a Radiologist or Obstetrics And Gynecology Professor within 24 hours. If discrepancies are noted, you will be notified by telephone. Please be certain the ED has a correct telephone number & address where you can be reached. Also, realize that some fractures or abnormalities do not show up on initial X-rays. If your symptoms continue, see your physician. ABOUT YOUR LABORATORY TEST: If you had laboratory tests, the results have been reviewed by the Emergency Physician. Some test results (for example cultures) may not be available for several days. You will be contacted if any test result shows you need additional treatment. Please be certain the ED has a correct telephone number and address where you can be reached. ABOUT YOUR MEDICATIONS: You will receive instructions on how to take your medicine on the prescription label you receive. Additional information may be provided by the Pharmacy. If you have questions afterwards, call the ED for clarification or further instructions. Some prescribed medications may cause drowsiness. Do not perform tasks such as driving a car or operating machinery without consulting your Pharmacist. If you feel you need a refill of pain medication, your condition will need re-evaluation. Please do not call for a refill of any medication. ABOUT YOUR SIGNATURE: Signature of this document acknowledges to followin. Understanding that you received emergency treatment and that you may be released before al medical problems are known or treated. Please be certain the ED has a correct phone number & address where you can be reached. 2. Acknowledgement that you will arrange for follow-up care as recommended. 3. Authorization for the Emergency Physician to provide information to your follow-up Physician in order to maximize your care. AT ANY TIME, IF YOUR SYMPTOMS CHANGE SIGNIFICANTLY OR WORSEN OR YOU DEVELOP NEW SYMPTOMS, RETURN TO THE EMERGENCY DEPARTMENT IMMEDIATELY FOR RE-EVALUATION. OUR GOAL IS TO PROVIDE EXCELLENT MEDICAL CARE! WE HOPE THAT WE HAVE MET YOUR EXPECTATIONS DURING YOUR EMERGENCY DEPARTMENT VISIT AND THAT YOU FEEL YOU HAVE RECEIVED EXCELLENT CARE! Concussion You have suffered a concussion -- a temporary loss of certain brain functions due to a mild brain injury. The recovery is usually rapid and comple te. The temporary problems occurring with a concussion can include loss of consciousness, dizziness, nausea, vomiting, and confusion. Repeat concussions can cause brain damage. In the future, avoid activities that will cause a blow to your head. Wear a helmet for sports such as snowboarding, biking, or skating. It's important that someone be with you for the first 24 hours. During this time, do not exercise or drive a vehicle. Do not take any pain medication stronger than acetaminophen unless prescribed by the physician. Any significant changes should be reported immediately to the physician. Signs of a problem may include: (1) Mental confusion (2) Incoordination or staggering (3) Repeated or forceful vomiting (4) Clear or bloody drainage from ear, mouth, or nose (5) Severe headache, not relieved by acetaminophen or prescribed pain medication (6) Failure to improve in 24 hours Referrals: ARCELIA JAVED, [Primary Care Provider] - Follow up as needed I personally performed the services described in the documentation, reviewed and edited the documentation which was dictated to the scribe in my presence, and it accurately records my words and actions.
[2020-02-12 03:00] VITALS: BP 144/91
== END 2020-02-12 02:59 | disposition home or self-care (01) ==
LOC: ER 22:31
DX: S06.0X1A Concussion with loss of consciousness of 30 minutes or less, initial encounter (principal); S01.311A Laceration without foreign body of right ear, initial encounter; R11.0 Nausea; W01.10XA Fall on same level from slipping, tripping and stumbling with subsequent striking against unspecified object, initial encounter; Y92.000 Kitchen of unspecified non-institutional (private) residence as the place of occurrence of the external cause
CPT/HCPCS: 99283; 70450; 72125; 12011; J3490 ×3; S0119

== ENCOUNTER → 2020-02-28 | Outpatient (CLI) | payer MEDICAID ==
--- NOTE | 2020-02-29 10:55 | RADIOLOGY REPORT (SQ) ---
EXAM DESCRIPTION: CT SOFT TISSUE NECK WITH IMAGES COMPLETED DATE/TIME: 02/28/2020 3:03 pm REASON FOR STUDY: SUBMANDIBULAR GLAND MASS K11.8 OTHER DISEASES OF SALIVARY GLANDS COMPARISON: None. TECHNIQUE: Post IV contrasted scanning from skull base through lung apices with review of bone, soft tissue and lung windows. Reconstructed coronal and sagittal MPR images reviewed. All images stored on PACS. All CT scanners at this facility use dose modulation, iterative reconstruction, and/or weight based d osing when appropriate to reduce radiation dose to as low as reasonably achievable (ALARA). [facility]: Dose Right [facility]: CareDose [facility]: Dose Right [facility]: Teradose 4D [facility]: [employer] CONTRAST TYPE AND DOSE: contrast/concentration: Isovue 350.00 mmol/ml; Total Contrast Delivered: 75. 0 ml; Total Saline Delivered: 45.0 ml RENAL FUNCTION: None required. The patient is less than 50 years old. RADIATION DOSE: . LIMITATIONS: None. FINDINGS: SKULL BASE: Intact. MAJOR SALIVARY GLANDS: There is asymmetry in size of the submandibular glands. Maximum AP measuremen t of the right submandibular gland is 2.1 cm and left submandibular gland 2.6 cm. No solid or cystic masses. No inflammatory changes. LYMPHADENOPATHY: No adenopathy. MUCOSAL MASSES OR ASYMMETRY: No mucosal masses or asymmetry. LARYNX/CORDS: No abnormal findings. VASCULAR STRUCTURES: The major vessels are patent. LUNG APICES: Clear. BONES: Intact. THYROID: Normal size. No masses. PARANASAL SINUSES: Clear. OTHER: No other significant finding. IMPRESSION: ASYMMETRY IN SIZE OF THE SUBMANDIBULAR GLANDS DESCRIBED. HOMOGENEOUS APPEARANCE WITH NO SOLID OR CYSTIC MASS AND NO INFLAMMATORY CHANGES. NO OTHER SIGNIFICANT FINDING IN THE SOFT TISSU ES OF THE NECK. TECHNICAL DOCUMENTATION: JOB ID: [id number] Quality ID # [id number]: Final reports with documentation of one or more dose reduction techniques (e.g., Au tomated exposure control, adjustment of the mA and/or kV according to patient size, use of iterative reconstruction technique) 2010 [employer]- All Rights Reserved Reading location - IP/workstation name: [email or web address]
== END ==
LOC: RAD 15:29
PROVIDERS: ATTEND Otolaryngology
DX: K11.8 Other diseases of salivary glands (principal)
CPT/HCPCS: 70491